=== PATIENT | female | born 1990 | race Caucasian/White ===

== ENCOUNTER → 2016-08-14 | Outpatient (CLI) | payer OTHER ==
[~2016-08-14] MED LIST: CEPHALEXIN500 M1 PO; EQUALINE PRENATAL; MOTRIN 800800 MG/TAB PO; NO HOME MEDICATIONS; PERCOCET 325 MG1 TA2 PO; SENOKOT S 50 MG1 TAB PO
== END ==
LOC: COL.RAD 09:35
DX: M50.222 Other cervical disc displacement at C5-C6 level (principal); M50.321 Other cervical disc degeneration at C4-C5 level